=== PATIENT | female | born 1955 | race Caucasian/White ===

== ENCOUNTER → 2016-09-03 | Outpatient (CLI) | payer BC | LOC: CIMAGING 14:51 | PROVIDERS: ATTEND Obstetrics & Gynecology | DX: N83.202 Unspecified ovarian cyst, left side (principal); Z80.41 Family history of malignant neoplasm of ovary | CPT/HCPCS: 76856-PO ==

== ENCOUNTER → 2017-01-25 | Outpatient (CLI) | payer BC | LOC: FIMAGING 13:12 | PROVIDERS: ATTEND Obstetrics & Gynecology | DX: N83.201 Unspecified ovarian cyst, right side (principal); Z80.41 Family history of malignant neoplasm of ovary | CPT/HCPCS: G0202 ==